=== PATIENT | male | born 2000 | race Caucasian/White ===

== ENCOUNTER 2020-09-23 20:41 | Emergency (ER) | payer OTHER ==
[~2020-09-23] VITALS: Ht 177.8 cm; Wt 88.5 kg
[~2020-09-23 20:41] MED LIST: AUGMENTIN 875-1 EACH PO; IBU600 MG PO; MEDROL4 M1 PO
== END 2020-09-24 00:32 | disposition home or self-care (01) ==
LOC: ED 20:41
DX: U07.1 COVID-19 (principal); J12.82 Pneumonia due to coronavirus disease 2019; J45.909 Unspecified asthma, uncomplicated
CPT/HCPCS: 71045; 80053; 85025; 99283-25; C9803; J7030; U0003